=== PATIENT | female | born 1955 | race Caucasian/White ===

== ENCOUNTER → 2024-06-13 11:53 | Outpatient (REF) | payer MEDICARE, OTHER, SELFPAY | LOC: HWWDC 11:53 | PROVIDERS: ATTENDING PHYSICIAN Family Medicine; FAMILY PHYSICIAN Internal Medicine Cardiovascular Disease | DX: Z12.31 Encounter for screening mammogram for malignant neoplasm of breast (principal) | CPT/HCPCS: 77063; 77067 ==

== ENCOUNTER 2025-04-30 08:37 | Emergency (ER) | payer MEDICARE, OTHER, SELFPAY ==
[2025-04-30 08:39] VITALS: BP 136/72
--- NOTE | 2025-04-30 09:24 | ED.GENMED ---
History of Present Illness
General
Chief Complaint: Head Injury
Source: patient
Exam Limitations: none
Time Seen by Provider: 04/30/25 09:16
History of Present Illness
History of Present Illness:
69yoF with a history of hypothyroidism presenting for evaluation after a head injury. Injury occurred about 1 hour prior to arrival. Her bathroom floor was wet and she slipped on the water. She struck the left side of her head on a [place]
counter. She did not lose consciousness. She took 2 Aleve prior to arrival. She is presenting with a headache and right-sided neck discomfort. She reports some nausea but denies any vomiting. She denies any dizziness or visual changes. She
does not take any blood thinners.
Past History
Past History
ED Past Medical History: Hypercholesterolemia, Hypothyroidism, Other (ADD ) and Other (Polycystic ovary disease , irritable bowel syndrome, diverticulosis); Negative HTN, IDDM or NIDDM
ED Past Surgical History: and Gynecological
Social History
Tobacco: Non-smoker
Alcohol: Occasional
Drug: None
Personal:
Living: with family
Employment: Other (homemaker)
Family History
Family History: Other (Father with [place] and non-Hodgkin's lymphoma. Mother with breast cancer)
Phy Exam
Physical Exam
Physical Exam:
Sitting with an ice pack around her neck
General Physical Exam
General Presentation: well appearing and no apparent distress
General Skin: warm and dry
General Habitus: normal and elderly
General Mental: alert
ENT Exam
ENT Exam: TM's normal (No hemotympanum), normocephalic and other (+R cervical tenderness. No external signs of head trauma.)
Eye Exam
Eye Exam: PERRL and conjunctiva normal
Pulmonary Exam
Pulmonary Exam: lungs clear, no respiratory distress, no rales, no crackles, no rhonchi and no wheezing
Neurological Exam
Neurological Exam: alert
Leonor Coma Scale
Eye Opening: Spontaneous
Verbal Response: Oriented
Motor Response: Obeys Commands
GCS Total Score: 15
Skin Exam
Skin Exam: normal color and warm/dry
Psychiatric Exam
Psychiatric Exam: normal mood/affect
Course
Orders/Labs/Results
Orders:
Orders
04/30/25 09:24
CT Cervical Spine W/o Iv Contr Urgent
Comment:
Reason For Exam: fall, neck pain
CT Head W/o Iv Contrast Urgent
Comment:
Reason For Exam: fall, head injury
Vital Signs
Initial and Last Documented VS:
Initial Vital Signs
Temp Pulse Resp BP Pulse Ox
97.8 F 68 18 136/72 97
04/30/25 08:39 04/30/25 08:39 04/30/25 08:39 04/30/25 08:39 04/30/25 08:39
Last Documented Vital Signs
Temp Pulse Resp BP Pulse Ox
97.8 F 53 16 122/63 100
04/30/25 08:39 04/30/25 11:56 04/30/25 11:56 04/30/25 11:56 04/30/25 11:56
MDM/Problems Addressed
Differential Diagnosis Includes:
69yoF here after a mechanical fall. Slipped on a wet floor and hit head. No LOC. Arrives with a headache and neck pain. No blood thinners. VSS. She is awake, alert, with a GCS of 15. No external signs of head trauma. Differential diagnosis
includes: Closed head injury, intracranial hemorrhage, fracture
CT head and cervical spine obtained which are negative for traumatic injuries. Patient stable for discharge. Supportive care reviewed and advised follow-up with PCP. ED return precautions discussed and patient discharged in stable condition.
*Pulse Oximetry
SaO2: 97
Oxygen Mode of Delivery: Room air
Patient hypoxic: no
*Critical Care Note
Total Time (30-74mins, 75-104mins- exclusive of procedures): Not Applicable
ED Attending Note
-
Portions of this chart may have been created with voice recognition software.� Occasional wrong word or��sound alike� substitutions may have occurred due to the inherent limitations of voice recognition software.
Discharge Plan
Departure
Patient Disposition: Home (Routine Discharge)
Date of Disposition: 04/30/25
Time of Disposition: 11:37
Patient with high blood pressure during this ER visit?: No
Discharge Problem:
Closed head injury
Instructions: Head Injury in Adults (DC)
Prescriptions:
No Action
levothyroxine 125 MCG tablet
125 mcg PO DAILY
methylphenidate HCl [Concerta] 36 MG tablet extended release 24hr
72 mg PO DAILY
fluoxetine 10 MG capsule
10 mg PO DAILY
aspirin 81 MG tablet,chewable
81 mg PO DAILY Qty: 30 0RF
psyllium husk [Metamucil Fiber (aspartame)] 1 PACKET powder in packet
1 packet PO DAILY
cetirizine 10 MG tablet
10 mg PO DAILY
pantoprazole 40 MG tablet,delayed release (DR/EC)
40 mg PO DAILY Qty: 30 0RF
ondansetron 4 mg tablet,disintegrating
4 mg PO Q8H PRN (Reason: nausea and vomiting) Qty: 7 0RF
Referrals:
Nadeem Gray MD [Family Provider, Family Practice]
Activity Restrictions/Additional Instructions:
Your CT scan did not show any fractures or bleeding.
Apply ice to affected area and take Tylenol as needed for pain.
Please follow-up with your family doctor. Return to the ER with any worsening symptoms including confusion or excessive vomiting.
Interventions
Interventions:
*Risk Screen - Suicide Last Done: 04/30/25 10:49
*General Assessment Last Done: 04/30/25 10:49
*Neglect/Abuse Screening Last Done: 04/30/25 10:49
*ED- Fall Risk Assessment Last Done: 04/30/25 11:57
*ED COVID-19 Vaccine History Last Done: 04/30/25 10:49
*Nursing Disposition Last Done: 04/30/25 11:57
ED- Neurological Assessment Last Done: 04/30/25 10:49
ED-Skin Assessment Last Done: 04/30/25 10:49
Discharge Date and Time
Discharge Date/Time: 04/30/25 11:59
Print Language: RWANDAN
[2025-04-30 11:56] VITALS: BP 122/63
== END 2025-04-30 11:59 | disposition home or self-care (01) ==
LOC: EMR 08:37
PROVIDERS: EMERGENCY PHYSICIAN Emergency Medicine; FAMILY PHYSICIAN Family Medicine
DX: S09.90XA Unspecified injury of head, initial encounter (principal); E78.00 Pure hypercholesterolemia, unspecified; E03.9 Hypothyroidism, unspecified; E28.2 Polycystic ovarian syndrome; K58.9 Irritable bowel syndrome, unspecified; F98.8 Other specified behavioral and emotional disorders with onset usually occurring in childhood and adolescence; Z79.82 Long term (current) use of aspirin; Z82.49 Family history of ischemic heart disease and other diseases of the circulatory system; W01.198A Fall on same level from slipping, tripping and stumbling with subsequent striking against other object, initial encounter; Y92.002 Bathroom of unspecified non-institutional (private) residence as the place of occurrence of the external cause
CPT/HCPCS: 99284; 70450; 72125